=== PATIENT | male | born 1960 | race African-American/Black ===

== ENCOUNTER → 2021-12-29 | Outpatient (CLI) | payer OTHER ==
[~2021-12-29] MED LIST: AMOXICILLIN; ASPIRIN 81M81 MG/TA2 PO; CLINDAMYCIN150 MG PO; FISH OIL500 MG PO; HCTZ 25MG TAB25 MG PO; LIPITOR20 MG PO; LORTAB 5/500 501 TAB PO; MVI; NORCO 325 MG-51 TAB PO; NORCO 325 MG-7.1 TAB PO; PHENERGAN 25 TA25 MG PO; PRILOSEC 20MG20 MG PO; VITAMIN E1000 U/CAP PO; VITAMIN E800 I1 PO; ZITHROMAX 250M250 MG PO; ZOCOR 20MG20 MG PO; ZOFRAN 4MG T4 MG/TAB PO
[2021-12-29 07:56] LABS: ALBUMIN 3.9 gm/dL (3.4-4.8); BILIRUBIN,TOTAL 0.6 mg/dL (0.2-1.2); CALCIUM 9.1 mg/dL (8.4-10.2); CREATININE, serum 1.11 mg/dL (0.72-1.25); POTASSIUM 3.9 mmol/L (3.5-4.5); TOTAL PROTEIN 7.2 gm/dL (6.2-8.1)
== END ==
LOC: COL.LAB 07:20
PROVIDERS: Nurse Practitioner Family
DX: I10 Essential (primary) hypertension (principal)